=== PATIENT | female | born 1955 | race Two or more races ===

== ENCOUNTER 2016-04-17 08:15 | Emergency (ER) | payer BC ==
[2016-04-17 09:31] LABS: APPEARANCE,URINE CLEAR; BILIRUBIN,URINE NEGATIVE (NEGATIVE); GLUCOSE, URINE NEGATIVE (NEGATIVE); KETONES,URINE NEGATIVE (NEGATIVE); LEUKOCYTE ESTERASE,URINE NEGATIVE (NEGATIVE); NITRITE,URINE POSITIVE (NEGATIVE); PROTEIN,URINE NEGATIVE (NEGATIVE); URINE SPECIFIC GRAVITY 1.002; UROBILINOGEN,URINE NEGATIVE mg/dL (<2.0)
[2016-04-17] MEDS ORDERED: PHENAZOPYRIDINE HCL 200 MG TABLET PO ONE (10:35)
--- NOTE | 2016-04-17 10:42 | ER Document Report ---
ED General - General Chief Complaint: Pain With Urination Stated Complaint: POSSIBLE UTI TRAVEL OUTSIDE OF THE [place] IN LAST 30 DAYS: No - HPI Patient complains to provider of: dysuria Notes: Patient coming in with dysuria. Patient states was found to have a urinary tract infection and local urgent care and diagnosed and prescribed Cipro and was taking Azo [id number]. Patient states that her symptoms initially did improve and now have returned. Patient continues to have dysuriaurinates patient also states night prior to arrival was having chills. Patient denies fever. Patient states that she did feel warm night prior to arrival. Patient has been compliant with her antibiotics. Patient did contact the urgent care again today is was told to come to the ER for further evaluation for possible pyelonephritis. Patient denies nausea vomiting diarrhea. - Related Data Allergies/Adverse Reactions: doxycycline Allergy (Verified 04/17/16 08:29) erythromycin base Allergy (Verified 04/17/16 08:29) Past Medical History - Social History Smoking Status: Unknown if Ever Smoked Chew tobacco use (# tins/day): No Frequency of alcohol use: None Drug Abuse: None Family History: Reviewed & Not Pertinent Patient has suicidal ideation: No Patient has homicidal ideation: No Renal/ Medical History: Denies: Hx Peritoneal Dialysis Review of Systems - Review of Systems Constitutional: No symptoms reported EENT: No symptoms reported Cardiovascular: No symptoms reported Respiratory: No symptoms reported Gastrointestinal: No symptoms reported Genitourinary: Dysuria Female Genitourinary: No symptoms reported Musculoskeletal: No symptoms reported Skin: No symptoms reported Hematologic/Lymphatic: No symptoms reported Neurological/Psychological: No symptoms reported -: Yes All other systems reviewed and negative Physical Exam - Vital signs Vitals: Temp Pulse Resp BP Pulse Ox 98.3 F 107 H 18 158/100 H 95 04/17/16 08:31 04/17/16 08:31 04/17/16 08:31 04/17/16 08:31 04/17/16 08:31 Interpretation: Normal - General General appearance: Appears well, Alert - HEENT Head: Normocephalic, Atraumatic Eyes: Normal Pupils: PERRL - Respiratory Respiratory status: No respiratory distress Chest status: Nontender Breath sounds: Normal Chest palpation: Normal - Cardiovascular Rhythm: Regular Heart sounds: Normal auscultation Murmur: No - Abdominal Inspection: Normal Distension: No distension Bowel sounds: Normal Tenderness: Nontender Organomegaly: No organomegaly - Back Back: Normal, Nontender - Extremities General upper extremity: Normal inspection, Nontender, Normal color, Normal ROM , Normal temperature General lower extremity: Normal inspection, Nontender, Normal color, Normal ROM , Normal temperature, Normal weight bearing. No: Isela's sign - Neurological Neuro grossly intact: Yes Cognition: Normal Orientation: AAOx4 Ramila Coma Scale Eye Opening: Spontaneous [place] Coma Scale Verbal: Oriented [place] Coma Scale Motor: Obeys Commands [place] Coma Scale Total: 15 Speech: Normal Motor strength normal: LUE, RUE, LLE, RLE Sensory: Normal - Psychological Associated symptoms: Normal affect, Normal mood - Skin Skin Temperature: Warm Skin Moisture: Dry Skin Color: Normal Course - Re-evaluation Re-evalutation: 04/17/16 15:14 Patient with no fever no flank pain. Patient's urinalysis that showed nitrates positive no pyuria and no bacteriuria. Patient's urine still be cultured. Alberto the patient's antibiotic coverage out for total 10 days. The patient was prescribed Pyridium however was unable to afford the prescription therefore I did change this to Ultram over the phone with pharmacy. Patient was encouraged follow-up with her primary care physician. - Vital Signs Vital signs: Temp Pulse Resp BP Pulse Ox 98.3 F 78 18 141/93 H 97 04/17/16 11:05 04/17/16 11:05 04/17/16 11:05 04/17/16 11:05 04/17/16 11:05 - Laboratory Laboratory results interpreted by me: 04/17/16 09:05 Urine Blood SMALL H Urine Nitrite POSITIVE H Discharge - Discharge Clinical Impression: uti undertreatment, Dysuria Condition: Good Disposition: HOME, SELF-CARE Instructions: Urinary Tract Infection ([facility]), Family Physicians / Practices Additional Instructions: The urinalysis today shows no signs of white blood cells or bacteria in your urine. I will extend your antibiotic coverage on for 3 days. I will see him your urine for culture to check for any kind of bacterial resistance. Patient had a culture results in 48 hours. Would recommend following up with primary care physician. Take medications as prescribed. Prescriptions: Ciprofloxacin HCl [Cipro 500 mg Tablet] 500 mg PO BID 3 Days Phenazopyridine HCl [Pyridium 200 mg Tablet] 200 mg PO TID #15 tablet Referrals: SANA VALENCIA MD [Primary Care Provider] - Follow up in 3-5 days
[2016-04-17 11:06] VITALS: BP 141/93
== END 2016-04-17 11:06 | disposition home or self-care (01) ==
LOC: ER 08:15
DX: N39.0 Urinary tract infection, site not specified (principal); R30.0 Dysuria; Z88.3 Allergy status to other anti-infective agents
CPT/HCPCS: 99283; 87086; 87088; 81001; 87186; J3490

== ENCOUNTER → 2016-06-01 | Outpatient (CLI) | payer BC ==
--- NOTE | 2016-06-01 09:13 | ST Modified Barium Swallow ---
Recommendation - Recommendations Recommendations: 1) DIET: recommend continue current diet. 2) Follow-up with refering MD. 3) Recommend consider GI consult due to pt reports of sticking sensation with no radiographic findings of pharyngeal residuals. SUMMARY: Pt presents with WNL swallow. No penetration or aspiration observed during the study. No radiographic findings of pharyngeal resiuals to correlate with pt reports of sticking sensation. Pt reported sticking sensation throughout study, however no residuals observed. Medical Diagnoses - Medical Diagnoses Medical Diagnosis Description & ICD-10 Code(s): choking due to food ( regurgitation), J42 unspecified chronic bronchitis Other Medical Diagnoses/Co-Morbidities: history of breast CA, gavin and radiation , x3 surgeries, chronic bronchitis, post nasal drip. - ICD-10 Tx Diagnosis Coding (1) Dysphagia, unspecified ICD-10 Code(s): R13.10 - DYSPHAGIA, UNSPECIFIED ST Modified Barium Swallow - General Date: 06/01/16 Referring Physician: Dr Phelan Risks/Precautions: None Date of Onset: 06/01/01 Reason for Referral: choking due to food (regurgitation) - History History obtained from: Patient -: Medical - Pt reports onset of symptoms approximately 5 years ago however have become "annoying" and she states never thought were a problem until her doctor started "asking her questions." Pt was then referred for study. Pt reports she will "wake up choking" and that this "runs in the family". She denies history of reflux or taking reflux medications. Pt also reports she will wake up at night "gasping for air" which "also runs in the family." Pt reports history of post nasal drip which she sates causes her to "choke". Pt reports coughing throughout day and night, however denies with PO intake. Pt denies recent history of PNA, states has chronic bronchitis. Pt does endorse occasional choking with liquids when drinking however "comes and goes." PMHx: breast CA, gavin which was stopped after 3 doses, radiation for 5 1/2 weeks, x3 surgeries for breast CA. post nasal drip, chronic bronchitis. Medications: Pt unsure of all meds- klonopin, singular, water pill, omega, vitamins and suppliments. Allergies: pollen, doxycycline, erythromyocin - Functional Status Prior Functional Status: INDEPENDENT: feeding Current Functional Limitations: feeding - Subjective Patient/caregiver goal(s): r/o aspiration Cognitive-Linguistic Function: WNL Speech Intelligibility: WNL Current Nutritional Means: PO Current PO diet: Regular Current symptoms: other - choking on water Pain: 0/5 - Objective Assessment: Upright, Left Lateral - Food Trials Used Food trials used: Thin liquids, Pureed, Regular The patient: Was Able to Self Feed - Oral-Motor Skills Dentition: Full Velo-pharyngeal function: Unremarkable Laryngeal Function: Volitional Cough, Volitional Swallow - Assessment Oral prep: Normal Labial closure: Adequate Leakage: None Mastication: Adequate Lingual Movement: Normal Oral stage: Normal for this Procedure - Pharyngeal Stage Initiation of Pharyngeal Stage Reflex: Normal Decreased laryngeal elevation: No Reduced Velopharyngeal Closure: no Reduced pressure generation: No reduced tongue-based retraction: No Pre-swallow pooling in valleculae: None Pre-Swallow pooling in pyriforms: None Reduced Thyro-Hyoid approximation: No Reduced epiglottic excursion: No Reduced pharyngeal peristalsis/contraction: No Post-swallow residulas vallecular: None Post-Swallow residuals in pyriforms: None - Fall Risk Assessment Medications/Conditions that increase fall risks include: Antidepressants, sedatives, anti-arrhythmic, diuretic, benzodiazipenes, neuroleptics. BP regulation problems, cardiac problems, balance or gait deficits, neurological problems. Is patient considered at risk for falls: no Fall Risk Actions Taken: No action needed - Behavioral Observations During evaluation process patient: was pleasant, was cooperative, able to answer questions, provided medical history - Treatment / Educational Needs: Treatment/Education Needs: Treatment consisted of patient education on the role of the Speech Pathologist. Patient's plan of care and golas were communicated as well as scheduling and attendance policies. Recommendations for initial home program were shared. Patient demonstrated understanding and verbalized agreement. - Impression/Summary Laryngeal Penetration: No Tracheal Aspiration: no Patient presents with: Normal swallow at eval - safe and effective swallow observed during study Risk of Aspiration: Minimal - Recommendations NPO: no Solid diet recommendations: Regular Liquid Diet Modification: Thin Strict aspiration precautions: No Pt/Family education and followup with MD: Yes Dysphagia therapy with PCT: no Recommended techniques: Fully Upright During Meal Supervision: Independent Information, Precautions and Recommendations: Patient (Verbal) - Time Total Time: 25 - Plan of Care Strategies to optimize patient understanding include:: ongoing assessment of educational needs, implementation of educational strategies, and re-education. - - -: Thank you for the opportunity to work with this patient and his/her family. Should you have any questions about this patient's plan or progress, I can be reached at [phone]. Charge G Code? - - -: No
== END ==
LOC: RAD 07:56
PROVIDERS: ATTEND Internal Medicine Pulmonary Disease
DX: J32.9 Chronic sinusitis, unspecified (principal); J42 Unspecified chronic bronchitis; T17.320A Food in larynx causing asphyxiation, initial encounter
CPT/HCPCS: 70220; 71020; 74230